=== PATIENT | female | born 1995 | race Caucasian/White ===

== ENCOUNTER 2019-02-12 16:33 | Inpatient (IN) | payer MEDICAID ==
[~2019-02-12] VITALS: Ht 170.2 cm; Wt 120.7 kg
[2019-02-12] VITALS (107 sets, daily range): BP systolic 117–128; BP diastolic 74–81; PULSE 83–94; TEMP 99.1; O2SAT 92–99
[2019-02-12 17:13] LABS: BASO # 0.1 (0.0-0.2); BASO % 0.7 % (0.0-2.0); EOS # 0.1 (0.0-0.7); EOS % 1.3 % (0-4.0); GRAN # 5.5 (1.4-6.5); GRAN % 66.5 % (42.2-75.2); HEMATOCRIT 39.4 % (37.0-47.0); HEMOGLOBIN 13.3 g/dl (12.5-16.0); LYMPH # 2.1 (1.2-3.4); LYMPH % 25.6 % (20.0-51.0); MEAN CELL VOLUME 84 fl (80.0-100.0); MEAN CORPUSCULAR HEMOGLOBIN 29 pg (27.0-31.0); MEAN CORPUSCULAR HGB CONC 34 g/dl (33.0-37.0); MEAN PLATELET VOLUME 9.5 fl (7.4-10.4); MONO # 0.4 (0.1-0.6); MONO % 5.4 % (1.7-9.3); PLATELET COUNT 266 K/mm3 (130-400); RED BLOOD COUNT 4.67 M/mm3 (4.10-5.30); REDCELL DISTRIBUTION WIDTH-CV 13.9 % (11.5-14.5)
[2019-02-12 17:16] LABS: COLLECTION METHOD CLEAN CATCH
[2019-02-12 17:26] LABS: MUCOUS Present /lpf; PH 7 (5-8); SQUAMOUS EPITHELIAL 0-2 /hpf; URINE APPEARANCE Clear; URINE BACTERIA Rare /hpf; URINE BILIRUBIN Negative (NEGATIVE); URINE BLOOD Negative (NEGATIVE); URINE COLOR Yellow; URINE GLUCOSE Negative (NEGATIVE); URINE KETONE Negative (NEGATIVE); URINE LEUKOCYTE ESTERASE Negative (NEGATIVE); URINE NITRATE Negative (NEGATIVE); URINE PROTEIN(semi-quant) 1+ (NEGATIVE); URINE RBC 0-2 /hpf; URINE UROBILINOGEN Negative (NEGATIVE)
[2019-02-12 17:29] LABS: ALANINE AMINOTRANSFERASE 78 U/L (9-52); ALBUMIN 4.9 gm/dL (3.5-5.0); ALKALINE PHOSPHATASE 76 U/L (50-136); ANION GAP 11 mmol/L (7-16); AST,SGOT 112 U/L (15-37); BILIRUBIN,TOTAL 0.4 mg/dL (0.0-1.0); BLOOD UREA NITROGEN 10 mg/dL (7-17); CALCIUM 10.4 mg/dL (8.4-10.2); CARBON DIOXIDE 25 mmol/L (22-30); CHLORIDE 101 mmol/L (98-107); CREATININE, serum 0.54 (0.52-1.25); GLUCOSE 151 mg/dL (74-106); POTASSIUM 4.1 mmol/L (3.4-5.0); SODIUM 137 mmol/L (137-145); TOTAL PROTEIN 8.8 gm/dL (6.4-8.2)
[2019-02-12 17:31] LABS: ACETAMINOPHEN < 10 ug/mL (10-30)
[2019-02-12 17:32] LABS: ALCOHOL(ethanol),MEDICAL < 10 mg/dL
[2019-02-12 17:45] LABS: TRICYCLIC ANTIDEPRESS URINE NEGATIVE
[2019-02-12 18:28] LABS: COLLECTION METHOD CATHETER
[2019-02-12 18:39] LABS: MUCOUS Present /lpf; PH 9 (5-8); SQUAMOUS EPITHELIAL 0-2 /hpf; URINE APPEARANCE Clear; URINE BACTERIA None Seen /hpf; URINE BILIRUBIN Negative (NEGATIVE); URINE BLOOD Negative (NEGATIVE); URINE COLOR Yellow; URINE GLUCOSE Negative (NEGATIVE); URINE KETONE Negative (NEGATIVE); URINE LEUKOCYTE ESTERASE Negative (NEGATIVE); URINE NITRATE Negative (NEGATIVE); URINE PROTEIN(semi-quant) 3+ (NEGATIVE); URINE RBC 0-2 /hpf; URINE UROBILINOGEN Negative (NEGATIVE)
--- NOTE | 2019-02-12 18:45 | NUR ---
RECEIVED TELEPHONE REPORT FROM BAYRON PETERS. ONCOMING SHIFT WILL NOTIFY ED WHEN PT CAN BE TRANSFERRED.
--- NOTE | 2019-02-12 20:05 | NUR ---
Report received from BAYRON Benjamin who received report earlier in shift from ED. Will call ED for update
--- NOTE | 2019-02-12 20:13 | NUR ---
Received update on patient from BAYRON Pike in the ED. Patient has pulled out her NG tube and is no longer receiving the golytely solution. NG may have to be put back in to continue flush. Patient will be brought to the unit shortly.
[2019-02-12 20:16] LABS: CALCIUM 10.1 mg/dL (8.4-10.2); CREATININE, serum 0.52 (0.52-1.25); POTASSIUM 4.3 mmol/L (3.4-5.0)
--- NOTE | 2019-02-12 20:20 | NUR ---
Patient room prepped at this time and all wires zip-tied together, all sharps and loose wires removed, trashbags replaced with paper ones. Suicide gown placed on bed. All signs placed outside of the room.
[2019-02-12 20:21] LABS: LITHIUM 2.4 mmol/L (0.6-1.2)
--- NOTE | 2019-02-12 20:25 | NUR ---
Patient arrives at this time via ED cart. Patient is able to stand and independently move herself to the unit bed. Patient attached to unit monitoring equipment. YARIEL Douglas at the bedside as well as Dr. Barroso to speak with patient. Once providers finished with their exams, assessment was completed by this nurse. Patient is alert and oriented x4. She follows commands and takes direction. Patient answers all questions approriately. Patient's lungs are clear bilaterally in all tillman, no complaints of cough. HR and rhythm are regular with normal S1 and S2 heard. Patient does complain that she feels like her "heart is beating slow". HR has been between 80-100 since being on the unit. Patient states that her normal is between 110-130 at rest. Bowel sounds are active x4. Patient has pale yellow urine in the catheter and is draining well, no kinks or twists in the tubing. Pulses are palpable in all extremities. Patient has self harm scars on all of her extremities with 5 new cuts on her right proximal forearm near the antecubital. They are scabbed and clean. Patient states that she did the recent ones today before she took the lithium. Assisted patient up to the bedside commode. Patient is having clear yellow liquid stools, no particles noted. Patient has some complaints of nausea, but states that it isnt bad at the current time. Explained control buttons on the bed to include the call light. Patient confirmed understanding. Patient's cell phone was sent home with her friend Regine Garcia, who brought her to the ED. Regine took home all patient's belongings to include clothes and cell phone. Regine did bring patient's personal bible in, which patient was allowed to keep. Regine was notified of the restrictions on visitors and went home. Patient resting in bed now with no further needs. Will continue to monitor. Call light on bed rail within reach.
[2019-02-12 22:08] LABS: CALCIUM 9.8 mg/dL (8.4-10.2); CREATININE, serum 0.59 (0.52-1.25); POTASSIUM 4.5 mmol/L (3.4-5.0)
[2019-02-12 22:21] LABS: LITHIUM 3.4 mmol/L (0.6-1.2)
[2019-02-12] MEDS ORDERED: LITHIUM 30300 MG/CAP PO (22:34)
[2019-02-12] MEDS ORDERED: GLUCOPHAGE XR500 M1 PO (22:37)
[2019-02-12] MEDS ORDERED: LATUDA120 MG PO (22:37)
[2019-02-12] MEDS ORDERED: LOPRESSOR100 MG PO (22:38)
[2019-02-12] MEDS ORDERED: MINIPRESS2 MG PO (22:39)
[2019-02-12] MEDS ORDERED: SEROQUEL50 MG PO (22:40)
[2019-02-12] MEDS ORDERED: ZOCOR 20MG20 MG PO (22:40)
[2019-02-12] MEDS ORDERED: JANUVIA 100MG100 MG PO (22:42)
[2019-02-12] MEDS ORDERED: CATAPRES0.3 MG PO (22:42)
--- NOTE | 2019-02-12 22:50 | NUR ---
Patient has complaints of worsening nausea at this time. Phenergan to be given.
[2019-02-13] VITALS (477 sets, daily range): BP systolic 88–156; BP diastolic 57–91; PULSE 78–105; TEMP 98.1–98.9; O2SAT 84–100
--- NOTE | 2019-02-13 | NUR ---
Patient is laying down in bed and states she is ready to try and get some sleep. Vitals obtained and remain WNL. No complaints of pain. Patient continues to have good urine output. Turned out lights for patient. This nurse still has clear line of site to patient at all times. No further needs at this time. Will continue to monitor. Call light within reach.
[2019-02-13 00:25] LABS: CALCIUM 9.7 mg/dL (8.4-10.2); CREATININE, serum 0.6 (0.52-1.25)
[2019-02-13 02:04] LABS: BASO % 0.4 % (0.0-2.0); EOS % 0.3 % (0-4.0); GRAN # 7.7 (1.4-6.5); GRAN % 77.8 % (42.2-75.2); HEMATOCRIT 37.7 % (37.0-47.0); HEMOGLOBIN 12.5 g/dl (12.5-16.0); LYMPH # 1.7 (1.2-3.4); LYMPH % 16.6 % (20.0-51.0); MEAN CELL VOLUME 86 fl (80.0-100.0); MEAN CORPUSCULAR HEMOGLOBIN 29 pg (27.0-31.0); MEAN CORPUSCULAR HGB CONC 33 g/dl (33.0-37.0); MEAN PLATELET VOLUME 9.2 fl (7.4-10.4); MONO # 0.4 (0.1-0.6); MONO % 4.3 % (1.7-9.3); PLATELET COUNT 250 K/mm3 (130-400); RED BLOOD COUNT 4.38 M/mm3 (4.10-5.30)
[2019-02-13 02:31] LABS: CALCIUM 9.6 mg/dL (8.4-10.2); CREATININE, serum 0.54 (0.52-1.25); POTASSIUM 4.1 mmol/L (3.4-5.0)
[2019-02-13 02:45] LABS: LITHIUM 4.4 mmol/L (0.6-1.2)
--- NOTE | 2019-02-13 04:00 | NUR ---
Patient awake at this time as labs are being drawn. Patient is alert and asking questions about her lab work. Discussed results with her. Assessment complete. No changes from previous 2 exams. Patients vitals remain stable. She is having good urine output. Patient has no further needs at this time. Will continue to monitor. Call light within reach.
[2019-02-13 04:32] LABS: CALCIUM 9.6 mg/dL (8.4-10.2); CREATININE, serum 0.65 (0.52-1.25); POTASSIUM 4.5 mmol/L (3.4-5.0)
[2019-02-13 04:33] LABS: LITHIUM 3.7 mmol/L (0.6-1.2)
--- NOTE | 2019-02-13 06:00 | NUR ---
Poison Control calls at this time for an update. Provided most recent lab results and current status. Nothing further at this time. They will call back later today to check in.
[2019-02-13 06:37] LABS: CALCIUM 9.2 mg/dL (8.4-10.2); CREATININE, serum 0.62 (0.52-1.25); POTASSIUM 4.2 mmol/L (3.4-5.0)
[2019-02-13 06:52] LABS: LITHIUM 3.3 mmol/L (0.6-1.2)
--- NOTE | 2019-02-13 07:27 | NUR ---
Report recieved from Josseline VERMA. Patient awakens easily, denies needs when asked.
--- NOTE | 2019-02-13 07:27 | NUR ---
Bedside report given to BAYRON Mckeon. Confirmed that all ligature has been secured and sharps have been removed from the room. Patient resting in bed with no current needs. Transfer of care at this time.
--- NOTE | 2019-02-13 08:00 | NUR ---
Patient's fiance and "mentor" have called to check in with nurse on patient's status. Patient laying in bed with eye closed. Denies needs. Will continue to monitor.
--- NOTE | 2019-02-13 11:56 | NUR ---
Poision Control calls this RN to check in on patient's status. Labs and VS reviewed. No new recommendations at this time
--- NOTE | 2019-02-13 12:11 | NUR ---
Spoke with patient regarding POC. Plan to transfer to medical floor with sitter when able. Patient voices understanding. Very agreeable with RN, denies needs.
--- NOTE | 2019-02-13 12:54 | NUR ---
LAM cedillo attended clincial rounds with the team. Consultations as follows: Nephrology, Psychiatric and social media marketing manager for psych recommenations. LAM cedillo met with the patient to discuss a discharge plan. The patient moved to [place] from [place] two weeks ago with her mentor, Regine Garcia. The patient does not use DME and reports independence with ADLs. The patient does not have a PCP. LAM cedillo provided a list of [facility] providers. LAM cedillo provided [facility] Resource guide which has listing for [address]. LAM cedillo reviewed the guide with patient. The patient receives medications from [facility] and reports her insurance covers the cost. The patient does not have advanced directives in the EMR and was not interested in obtaining a DPOA-HC. The patient plans to return home with Regine providing transportation. The patient is to transfer to the medical floor. support services rep will continue to follow to ensure safe discharge.
--- NOTE | 2019-02-13 13:54 | NUR ---
Report given to Mc VERMA. Transfered to room 315 via wheelchair with RN. Tele monitor on patient. Belongings (Bible and paperwork) sent with patient.
--- NOTE | 2019-02-13 20:00 | NUR ---
Report received from BAYRON Bentley. Patient resting in bed. Assessment complete. Patient is very pleasant and cooperative with cares. Denies having any pain at this time. Lungs CTA. Pulses strong. Patient room has been inspected and changed and all suicide precautions taken. Patient up to restroom independently. Patient states no further needs at this time. Call light within reach.
[2019-02-13 20:15] LABS: CREATININE, serum 0.57 (0.52-1.25); POTASSIUM 3.7 mmol/L (3.4-5.0)
[2019-02-13 20:18] LABS: LITHIUM 1.9 mmol/L (0.6-1.2)
[2019-02-14] VITALS (7 sets, daily range): BP systolic 102–137; BP diastolic 46–64; PULSE 77–99; TEMP 97.8–99.1
--- NOTE | 2019-02-14 01:31 | NUR ---
Patient sleeping in bed. Q15M suicide checks completed. [place] gown taken off due to patient being hot. Removed from room. Patient still denying pain at this time. No further needs at this time. Call light within reach.
--- NOTE | 2019-02-14 06:07 | NUR ---
Patient had uneventful night. Q15M suicide checks throughout night. Denied pain. Resting in bed. Call light on bed within reach.
[2019-02-14 06:11] LABS: BASO % 0.4 % (0.0-2.0); EOS # 0.2 (0.0-0.7); EOS % 2.1 % (0-4.0); GRAN # 4.3 (1.4-6.5); GRAN % 61.5 % (42.2-75.2); HEMOGLOBIN 11.2 g/dl (12.5-16.0); LYMPH # 2.1 (1.2-3.4); LYMPH % 29.3 % (20.0-51.0); MEAN CELL VOLUME 88 fl (80.0-100.0); MEAN CORPUSCULAR HEMOGLOBIN 28 pg (27.0-31.0); MEAN CORPUSCULAR HGB CONC 32 g/dl (33.0-37.0); MEAN PLATELET VOLUME 9.5 fl (7.4-10.4); MONO # 0.4 (0.1-0.6); MONO % 5.8 % (1.7-9.3); PLATELET COUNT 219 K/mm3 (130-400); RED BLOOD COUNT 4.01 M/mm3 (4.10-5.30); REDCELL DISTRIBUTION WIDTH-CV 14.1 % (11.5-14.5)
[2019-02-14 06:17] LABS: CALCIUM 9.2 mg/dL (8.4-10.2); CREATININE, serum 0.56 (0.52-1.25); POTASSIUM 3.7 mmol/L (3.4-5.0)
[2019-02-14 06:24] LABS: HEMATOCRIT 35.1 % (37.0-47.0)
[2019-02-14 06:36] LABS: LITHIUM 1.5 mmol/L (0.6-1.2)
--- NOTE | 2019-02-14 07:08 | NUR ---
Report given to BAYRON Jimenez
--- NOTE | 2019-02-14 08:52 | NUR ---
Patient sleeping this AM. She awakens easily and is cooperative with medications and cares. She denies any pain or discomfort. Not very communicative. With encouragement curtian open in room. Patient have IV fluids infusing to the right hand. Noted there are cut chávez on right forearm that are healing well. Patient ordered breakfast and has no other needs at this time. She has continued to have a 1:1 sitter
--- NOTE | 2019-02-14 10:05 | NUR ---
Current bag of IV fluids has completed. Spoke with YARIEL Camarena regarding IV fluid order. Per her recommendation will hold IV fluids til seen by Dr. Gloria. Questioned if she thought the patient was medically stable and could be screened by [facility]. At this time her [place] level is not normalized and we would need to wait until this took place
--- NOTE | 2019-02-14 11:39 | NUR ---
Per Dr. Gloria, patient is medically cleared and ready to be screened. Kiara [facility] [place] has been called and will be here soon to screen the patient for discharge planning. IV fluids and tele has been discontinued.
--- NOTE | 2019-02-14 11:54 | NUR ---
Patient doing well denies any pain discomfort. Lunch meal ordered. patietn states she is having a small amount of stomach cramping and small loose stool noted. She is independent in room. No other needs
--- NOTE | 2019-02-14 12:39 | NUR ---
Kiara from [facility] here to evaluate patient. Patient can be discharged to home with safety plan. Call placed to Dr. Gloria for discharge orders to home. Patient given phone to call friend for a ride home. Patient in good spirits.
--- NOTE | 2019-02-14 13:43 | NUR ---
Discharge instructions reviewed with patient and her friend. Encouragement given to keep follow up appointments. Patient states she has no further lithium at home and will start her other medications as ordered. No other needs at this time. Patient given and reviewed the safety plan. INT removed. Escorted out by FATMATA
== END 2019-02-14 13:45 | disposition home or self-care (01) | DRG 918 ==
LOC: COL.ER 16:33 → MEDICAL 18:06 → ICU 18:06 → MEDICAL 02-13 15:29
PROVIDERS: Emergency Medicine; Nurse Practitioner Family; Physician Assistant; ADMIT Student in an Organized Health Care Education/Training Program
DX: T56.892A Toxic effect of other metals, intentional self-harm, initial encounter (principal); F33.9 Major depressive disorder, recurrent, unspecified; R74.8 Abnormal levels of other serum enzymes; F60.3 Borderline personality disorder; F43.10 Post-traumatic stress disorder, unspecified; F41.8 Other specified anxiety disorders; E28.2 Polycystic ovarian syndrome; E11.9 Type 2 diabetes mellitus without complications; R00.0 Tachycardia, unspecified; I49.9 Cardiac arrhythmia, unspecified; E78.5 Hyperlipidemia, unspecified; Z79.84 Long term (current) use of oral hypoglycemic drugs
CPT/HCPCS: 99222-AI; 99239; J1650; J2405; J2550; J3480; J7030

== ENCOUNTER 2022-08-18 08:27 | Emergency (ER) | payer MEDICAID ==
[~2022-08-18] VITALS: Ht 170.2 cm; Wt 105.0 kg
[~2022-08-18 08:27] MED LIST: CATAPRES0.3 MG PO; GLUCOPHAGE XR500 M1 PO; JANUVIA 100MG100 MG PO; LATUDA120 MG PO; LITHIUM 30300 MG/CAP PO; LOPRESSOR100 MG PO; MINIPRESS2 MG PO; SEROQUEL50 MG PO; ZOCOR 20MG20 MG PO
[2022-08-18 08:31] VITALS: TEMP 98.2
[2022-08-18 09:04] LABS: BASO # 0.1 K/mm3 (0.0-0.2); BASO % 0.6 % (0.0-2.0); EOS # 0.1 K/mm3 (0.0-0.7); EOS % 1.1 % (0.0-4.0); GRAN # 6.4 K/mm3 (1.4-6.5); GRAN % 75.4 % (42.2-75.2); HEMOGLOBIN 12.7 g/dl (12.5-16.0); LYMPH # 1.5 K/mm3 (1.2-3.4); MEAN CELL VOLUME 87 fl (80.0-100.0); MEAN CORPUSCULAR HEMOGLOBIN 30 pg (27-31); MEAN CORPUSCULAR HGB CONC 34 g/dl (33.0-37.0); MEAN PLATELET VOLUME 9.2 fl (7.4-10.4); MONO # 0.4 K/mm3 (0.1-0.6); MONO % 4.3 % (1.7-9.3); PLATELET COUNT 256 K/mm3 (130-400); RED BLOOD COUNT 4.27 M/mm3 (4.10-5.30); REDCELL DISTRIBUTION WIDTH-CV 12.8 % (11.5-14.5)
[2022-08-18 09:20] LABS: ALBUMIN 4.3 gm/dL (3.5-5.0); BILIRUBIN,TOTAL 0.5 mg/dL (0.2-1.2); CALCIUM 9.6 mg/dL (8.4-10.2); CREATININE, serum 0.71 mg/dL (0.57-1.11); POTASSIUM 3.7 mmol/L (3.5-4.5); TOTAL PROTEIN 7.7 gm/dL (6.2-8.1)
[2022-08-18 10:12] VITALS: BP 112/73
[2022-08-18 12:10] VITALS: PULSE 70
[2022-08-18 12:36] LABS: COLLECTION METHOD IN
[2022-08-18 12:46] LABS: MUCOUS Present (NOT PRESENT); SQUAMOUS EPITHELIAL 0-2 /hpf (0-10); URINE BACTERIA Rare /hpf (NONE SEEN); URINE WBC 0-2 /hpf (0-2)
[2022-08-18 13:32] LABS: PH 5.5 (5.0-8.5); URINE APPEARANCE Clear (CLEAR/HAZY); URINE BLOOD 2+ (NEGATIVE); URINE COLOR Yellow (YELLOW); URINE GLUCOSE Negative (NEGATIVE); URINE KETONE Negative (NEGATIVE); URINE NITRATE Negative (NEGATIVE); URINE PROTEIN(semi-quant) Negative (NEGATIVE); URINE UROBILINOGEN 0.2 E.U/dL (0.2-1.0)
== END 2022-08-18 12:14 | disposition home or self-care (01) ==
LOC: COL.ER 08:27
PROVIDERS: Emergency Medicine
DX: O20.0 Threatened abortion (principal); Z3A.01 Less than 8 weeks gestation of pregnancy; Z28.310 Unvaccinated for COVID-19
CPT/HCPCS: J1885; J2791; J3010; J7120

== ENCOUNTER → 2023-06-12 | Outpatient (CLI) | payer MEDICAID ==
[~2023-06-12] MED LIST changes: +CRUTCHES MC
== END ==
LOC: DIA.ED 13:27
DX: O24.419 Gestational diabetes mellitus in pregnancy, unspecified control (principal)
CPT/HCPCS: G0108

== ENCOUNTER → 2023-06-22 | Outpatient (CLI) | payer MEDICAID | LOC: DIA.ED 08:26 | DX: O24.419 Gestational diabetes mellitus in pregnancy, unspecified control (principal); E78.5 Hyperlipidemia, unspecified | CPT/HCPCS: G0108 ==

== ENCOUNTER 2023-07-08 15:17 | Emergency (ER) | payer MEDICAID ==
[~2023-07-08] VITALS: Ht 172.7 cm; Wt 117.9 kg
[2023-07-08 15:26] VITALS: TEMP 98.4
[2023-07-08] MEDS ORDERED: NS 1,000 ML IV ONE (15:45)
[2023-07-08 16:11] LABS: HEMOGLOBIN 10.6 g/dl (12.5-16.0); MEAN CELL VOLUME 87 fl (80.0-100.0); MEAN CORPUSCULAR HEMOGLOBIN 29 pg (27-31); MEAN CORPUSCULAR HGB CONC 33 g/dl (33.0-37.0); MEAN PLATELET VOLUME 9.1 fl (7.4-10.4); PLATELET COUNT 189 K/mm3 (130-400); RED BLOOD COUNT 3.64 M/mm3 (4.10-5.30); REDCELL DISTRIBUTION WIDTH-CV 14.9 % (11.5-14.5)
[2023-07-08 16:14] LABS: HEMATOCRIT 31.8 % (37.0-47.0)
[2023-07-08 16:30] LABS: CALCIUM 9.8 mg/dL (8.4-10.2); CREATININE, serum 0.7 mg/dL (0.57-1.11); POTASSIUM 3.3 mmol/L (3.5-4.5)
[2023-07-08 17:28] LABS: COLLECTION METHOD IN
[2023-07-08 17:32] LABS: PH 6.5 (5.0-8.5); URINE APPEARANCE CLOUDY (CLEAR/HAZY); URINE BLOOD NEGATIVE (NEGATIVE); URINE COLOR YELLOW (YELLOW); URINE GLUCOSE 1+ (NEGATIVE); URINE KETONE NEGATIVE (NEGATIVE); URINE NITRATE NEGATIVE (NEGATIVE); URINE PROTEIN(semi-quant) NEGATIVE (NEGATIVE); URINE UROBILINOGEN 0.2 E.U/dL (0.2-1.0)
[2023-07-08 18:07] VITALS: BP 102/58; PULSE 98
== END 2023-07-08 18:07 | disposition home or self-care (01) ==
LOC: COL.ER 15:17
PROVIDERS: Emergency Medicine
DX: O99.283 Endocrine, nutritional and metabolic diseases complicating pregnancy, third trimester (principal); E86.0 Dehydration; E87.6 Hypokalemia; Z3A.32 32 weeks gestation of pregnancy
CPT/HCPCS: J7030

== ENCOUNTER → 2023-07-11 | Outpatient (CLI) | payer MEDICAID | LOC: DIA.ED | DX: O24.419 Gestational diabetes mellitus in pregnancy, unspecified control (principal) ==

== ENCOUNTER 2023-08-17 10:40 | Inpatient (IN) | payer MEDICAID ==
[~2023-08-17] VITALS: Ht 172.7 cm; Wt 130.0 kg
[~2023-08-17 10:40] MED LIST changes: +EUTHYROX75 MCG PO; +PRENATAL TABLET PO; +SLOW FE137 M1 PO; +VITAMIN D362.5 MC1 PO
[2023-08-21] VITALS (53 sets, daily range): BP systolic 106–148; BP diastolic 55–97; PULSE 80–126; TEMP 97.6–99.2
[2023-08-21] MEDS ORDERED: LR & Oxytocin 500 ML IV SCH (06:45)
[2023-08-21] MEDS ORDERED: LR 1,000 ML IV SCH (06:45)
--- NOTE | 2023-08-21 06:50 | NUR ---
PATIENT AMBULATED ON TO UNIT AND TO ROOM. PATIENT DENIES ANY LEAKING OF FLUID OR BLEEDING. PATIENT REPORTS NORMAL MOVEMENT. PATIENT REPORTS IRREGULAR CONTRACTIONS. EFM AND TOCO INITIATED. SP02 INITIATED.
--- NOTE | 2023-08-21 07:30 | NUR ---
PATIENT REPORTS SUICIDAL THOUGHTS THIS BUT HAS NO PLANS TO ACT ON THEM. PATIENT REPORTS SHE IS RECIEVING SPIRTUAL HELP. PATIENT FEELS HER IDEATIONS MAY HAVE BEEN RELATED TO HER LOW THYROID LEVELS. PATIENT SUPPORT SYSTEM IN PLACE. SOCIAL WORK WILL BE NOTIFIED.
[2023-08-21] MEDS ORDERED: LANTUS SOLOS100 U/ML SQ (08:00)
[2023-08-21] MEDS ORDERED: HUMALOG PEN100 U/ML (08:02)
--- NOTE | 2023-08-21 08:10 | NUR ---
0810 AT BEDSIDE. FHR TRACING REVIEWED AND PLAN OF CARE UPDATED. SVE:/-2. AROM @ 0815. FSE PLACED BY @ 08.
[2023-08-21 08:11] LABS: BASO % 0.3 % (0.0-2.0); EOS # 0.1 K/mm3 (0.0-0.7); HEMOGLOBIN 11.6 g/dl (12.5-16.0); LYMPH # 1.3 K/mm3 (1.2-3.4); LYMPH % 16.8 % (20.0-51.0); MEAN CELL VOLUME 86 fl (80.0-100.0); MEAN CORPUSCULAR HEMOGLOBIN 29 pg (27-31); MEAN CORPUSCULAR HGB CONC 34 g/dl (33.0-37.0); MEAN PLATELET VOLUME 9.6 fl (7.4-10.4); MONO # 0.4 K/mm3 (0.1-0.6); MONO % 4.9 % (1.7-9.3); PLATELET COUNT 194 K/mm3 (130-400); RED BLOOD COUNT 3.97 M/mm3 (4.10-5.30); REDCELL DISTRIBUTION WIDTH-CV 15.2 % (11.5-14.5)
[2023-08-21 08:21] LABS: HEMATOCRIT 34.3 % (37.0-47.0)
--- NOTE | 2023-08-21 10:30 | NUR ---
PATIENT UP TO BATHROOM AND OFF EFM
--- NOTE | 2023-08-21 10:45 | NUR ---
PATIENT SETUP ON WIRELESS MONITOR FOR AMBULATION ON UNIT.
--- NOTE | 2023-08-21 11:00 | NUR ---
AT BEDSIDE. SVE: -/-2. FHR TRACING REVIWED AND PLAN OF CARE UPDATED.
[2023-08-21] MEDS ORDERED: ROPivacaine PF 0.2% 200 ML IV ONE (13:44)
--- NOTE | 2023-08-21 13:58 | NUR ---
1347 REJI OBRIEN AT THE BEDSIDE. PROCEDURE EXPLAINED AND CONSENT OBTAINED. PATIENT SETUP FOR EPIDURAL. 1358 TEST DOSE. SEE ANESTHESIA RECORD FOR DETAILS. SP02 MONITOR INITIATED. 1405 PATIENT ASSSITED BACK TO LEFT LATERAL POSITION. FSE AND TOCO AJUSTED.
[2023-08-21] MEDS ORDERED: Lidocaine PF 2% (20 MG/ML) 5 ML VIAL ONE (14:08)
[2023-08-21] MEDS ORDERED: diphenhydrAMINE 25 MG CAP PO PRN (14:30)
[2023-08-21] MEDS ORDERED: Naloxone 0.4 MG/ML VIAL IV PRN ×2 (14:30→22:30)
[2023-08-21] MEDS ORDERED: ePHEDrine 50 MG/10 ML VIAL IV PRN (14:30)
[2023-08-21] MEDS ORDERED: diphenhydrAMINE 50 MG/ML 1 ML VIAL IV PRN (14:30)
[2023-08-21] MEDS ORDERED: Ondansetron 4 MG/2 ML VIAL IV PRN ×2 (14:30→22:30)
--- NOTE | 2023-08-21 14:30 | NUR ---
CONTRACTIONS UNABLE TO BE TRACED D/T MATERNAL POSITION. TOCO ADJUSTED.
--- NOTE | 2023-08-21 14:45 | NUR ---
THIS RN AT [facility]. PATIENT IN THE LEFT LATERAL POSITION, RECURRENT LATE DECELERATIONS.PATIENT REPOSITIONED TO RIGHT LATERAL. WITH POSTION CHANGE A 2 MIN FHR DECELERATION TO THE 90S. FHR RECOVERY BACK TO BASELINE WITH MATERNAL REPOSITION BACK TO LEFT LATERAL, IV BOLUS INITIATED. MD NOTIFED.
--- NOTE | 2023-08-21 17:03 | NUR ---
AT BEDSIDE. FHR TRACING REVIEWED. PLAN OF CARE UPDATED. SVE:/-2. BLOODY SHOW PRESENT. REQUESTS THAT THIS RN PASS ON TO CLINICAL OFFICE TECHNICIAN TO CHECK HER AT 1900 AND CALL HER.
--- NOTE | 2023-08-21 17:25 | NUR ---
PATIENT REPORTS FEELING LIGHTHEADED. THIS RN AT BEDSIDE. MATERNAL BLOOD PRESSURE 106/55. EPHEDRINE 10 MG GIVEN @ 1727 WITH IMPROVMENT IN MATERNAL BLOOD PRESSURE TO 120/63. MATERNAL BLOOD PRESSURE DECREASE TO 109/58 AT 1740. ANOTHER DOSE OF EPHEDRINE 10MG GIVEN @ 1741. MATERNAL BLOOD PRESSURE IMPROVED TO 128/68 AND REMAINED STABLE AT 168/81 AND 147/66.
--- NOTE | 2023-08-21 19:00 | NUR ---
Dr Singh calls in report given. SVE . Cervix 'swollen' on the L. Category 1 FHT's, Pitocin gtt @ 20.
--- NOTE | 2023-08-21 20:10 | NUR ---
Dr Singh into room. SVE as noted. "no change from previous exam" IUPC placed. Dr Singh discusses POC with pt r/t evaluating strength, frequency, and effectiveness of contrqactions.
[2023-08-21] MEDS ORDERED: traZODone 50 MG TAB PO PRN (21:00)
--- NOTE | 2023-08-21 21:40 | NUR ---
Dr Singh into room, SVE with no changes noted. Dr Singh discusses POC r/t possible C/S. Will reasses in 1/2hr.
--- NOTE | 2023-08-21 22:20 | NUR ---
Dr Singh into room, SVE "unchanged" . Dr Singh discusses need to proceed with C/S. Questions invited and answered. 2224 Katie laughlin. . Anesthesia into room. 2239 To C/S room via bed.
[2023-08-21] MEDS ORDERED: LR 1,000 ML IV PRN (22:30)
[2023-08-21] MEDS ORDERED: Morphine 4 MG/ML VIAL IV PRN (22:30)
[2023-08-21] MEDS ORDERED: oxyCODONE 5 MG TAB PO PRN (22:30)
[2023-08-21] MEDS ORDERED: Acetaminophen 500 MG TAB PO PRN (22:30)
[2023-08-21] MEDS ORDERED: Loratadine 10 MG TAB PO PRN (22:30)
[2023-08-21] MEDS ORDERED: Tranexamic Acid 1,000 MG in NS 100 ML IV ONE (22:30)
[2023-08-21] MEDS ORDERED: Magnes Hydrox (MOM) 80 MG/ML 30 ML CUP PO PRN (22:30)
[2023-08-21] MEDS ORDERED: Measles/Mumps/Rubella Virus Vaccine Live w Diluent 0.5 ML VIAL SQ SCH (22:30)
[2023-08-21] MEDS ORDERED: Azithromycin 500 MG in NS 250 ML IV ONE (22:30)
[2023-08-21] MEDS ORDERED: Chloroprocaine PF 3% (30 MG/ML) 20 ML VIAL ONE (22:34)
[2023-08-21] MEDS ORDERED: Ketorolac 30 MG/ML VIAL ONE (22:38)
[2023-08-21] MEDS ORDERED: Oxytocin 10 UNITS/ML VIAL ONE (22:38)
[2023-08-21] MEDS ORDERED: Ondansetron 4 MG/2 ML VIAL ONE (22:38)
[2023-08-21] MEDS ORDERED: NS 20 ML IV ONE (22:38)
[2023-08-21] MEDS ORDERED: fentaNYL 50 MCG/ML 2 ML VIAL ONE ×2 (22:57→23:07)
[2023-08-21] MEDS ORDERED: dexAMETHasone 10 MG/ML VIAL ONE (23:21)
[2023-08-21] MEDS ORDERED: EPINEPHrine 1 MG/1 ML Ampule ONE (23:28)
[2023-08-22] VITALS (15 sets, daily range): BP systolic 111–150; BP diastolic 70–94; PULSE 80–126; TEMP 98–98.7
[2023-08-22] MEDS ORDERED: Ibuprofen 800 MG TAB PO SCH (04:25)
[2023-08-22] MEDS ORDERED: Sennosides/Docusate 8.6-50 MG TAB PO SCH (08:00)
--- NOTE | 2023-08-22 09:22 | NUR ---
Initial visit; Parents thanked Block [employer] Case [employer] for offering congratulations and God's blessings for the of their son. Block And Case Maker thanked family for choosing [place].
[2023-08-22] MEDS ORDERED: Glucagon 1 MG VIAL IM PRN (11:30)
[2023-08-22] MEDS ORDERED: Dextrose 50% Water 25 GM/50 ML SYRINGE IV PRN (11:30)
[2023-08-22] MEDS ORDERED: Dextrose (Glucose) 15 GM (4 x 3.75 GM) Chewable TABLET PACK PO PRN (11:30)
[2023-08-22] MEDS ORDERED: Insulin Lispro (HumaLOG) SQ SCH ×2 (12:00→17:00)
[2023-08-22] MEDS ORDERED: Insulin Glargine-ygfn (Lantus) SQ SCH (21:00)
[2023-08-23 06:45] VITALS: BP 122/89; PULSE 96; TEMP 97.7
--- NOTE | 2023-08-23 06:45 | NUR ---
Pt called out asking if baby was ready to eat. This RN went to pt room. Pt was sitting on the toilet tears streaming down both cheeks. When asked why she was crying pt stated that there was something wrong with her baby and that is why it had not come back to the room. Pt was reassured that her baby was doing fine and asleep in the nursery. Pt was reminded that she sent baby to the nursery so she could sleep last night. Pt was holding her abdomin. Pt was asked if she was in pain. Pt stated that her inscision had ripped open and was bleeding. This RN was assessed the bandage closer. Bandage was clean and dry with no drainage. Pt was reassured that she was not bleeding at her inscision site. Pt did calm down some. This RN told pt she would go get baby from nursery and bring him in while pt got finnished up in the bathroom and got back to bed.
--- NOTE | 2023-08-23 08:15 | NUR ---
This RN went to PT room to take a blood sugar. Pt was in bed holding baby up to her face, tears streaming down both cheeks agian. When asked what pt was feeing she stated that she felt so incredibley guilty for sending him to the nursery lst night. She didn't ever want to let him go. She had abandoned him last night. This RN reassured the PT that sending baby to the nursery so she could get some sleep was not abandoning him. Pt also stated that she was having seperation anxiety. This RN asked how the pt would feel about taking an anxiety medication if I talked to the doctor about it. Pt was unsure at first and asked if she could take while . Pt was reassured that would not be affected.
[2023-08-23 10:14] VITALS: BP 113/69; PULSE 101; TEMP 97.7
--- NOTE | 2023-08-23 17:09 | NUR ---
tail worker was consulted due to patient having previous suicidal ideations during . SAEID met with patient's nurse whom reports patient's emotions have been up and down to the point they are submitting for a psych consult. SW met with patient, patient's and patient's mother to complete assessment. Patient's current PCP is Flor Herrera at [facility], pharmacy is [facility]. Patient has a lot of family support available to her. Patient has crib, bassinet, car seat, cloth diapers, formula, breast pump, bottles, clothing and reports his nursery is set up. Patient is currently employed and plans to return to work when able. Patient's will be a stay at home dad so baby will have support at all times. Patient has [employer] for insurance and SW explained the process on how to add baby to the insurance. Patient is able to transport herself and baby to and from appointments for follow up. Patient would be interested in [facility] services. Patient has no other children. SW discussed patient's previous thoughts of harming herself and she stated it happened during her because her thyroid levels dropped. Patient stated once stabilized she had no further thoughts of harming herself. Patient denied any current thoughts or plan of harming herself. SW provided information on mental health resources in the community including at her [facility]. Patient reports she is not interested in mental health therapy at this time because she was in therapy for years and it did not work for her. Patient reports she has a mentor through her confucianist that she turns to for guidance in difficult times. SW discussed depression and that if she were to want to seek mental health services her [facility] has a counselor to assist if needed. Patient and understood. SW also provided the [facility] Resource guide along with another community based resource. Patient is open to anxiety medication and understands she can breast feed while on this medication. SAEID updated nurse on this information. Patient will have a psych consult completed. SW completed a CPS report due to previous suicidal thoughts and patient may benefit from additional resources DCF can provide. Intake ID: [id number]
[2023-08-23 17:30] VITALS: BP 120/76; PULSE 85; TEMP 98.3
[2023-08-23 19:55] VITALS: BP 136/76; PULSE 92; TEMP 98.1
[2023-08-23] MEDS ORDERED: PERCOCET 325 MG1 TA2 PO (20:46)
[2023-08-23] MEDS ORDERED: MOTRIN 800800 MG/TAB PO (20:46)
[2023-08-24 09:00] VITALS: BP 140/90; PULSE 91; TEMP 97.9
--- NOTE | 2023-08-24 12:00 | NUR ---
DC INSTRUCTIONS GIVEN, MMR VACCINE GIVEN, PT AGREES.
== END 2023-08-24 12:00 | disposition home or self-care (01) | DRG 788 ==
LOC: OB 10:40 → LDR 08-21 06:32 → OB 08-21 06:32
PROVIDERS: ADMIT Obstetrics & Gynecology
PROC: 10D00Z1 Extraction of Products of Conception, Low, Open Approach (ICD-10-PCS; principal; 2023-08-21)
PROC: 3E033VJ Introduction of Other Hormone into Peripheral Vein, Percutaneous Approach (ICD-10-PCS; 2023-08-21)
PROC: 10907ZC Drainage of Amniotic Fluid, Therapeutic from Products of Conception, Via Natural or Artificial Opening (ICD-10-PCS; 2023-08-21)
DX: O24.425 Gestational diabetes mellitus in childbirth, controlled by oral hypoglycemic drugs (principal); Z3A.38 38 weeks gestation of pregnancy; Z37.0 Single live birth; J45.909 Unspecified asthma, uncomplicated; O99.52 Diseases of the respiratory system complicating childbirth; O99.284 Endocrine, nutritional and metabolic diseases complicating childbirth; E03.9 Hypothyroidism, unspecified; F31.9 Bipolar disorder, unspecified; F43.10 Post-traumatic stress disorder, unspecified; O36.63X0 Maternal care for excessive fetal growth, third trimester, not applicable or unspecified; O99.344 Other mental disorders complicating childbirth; O76 Abnormality in fetal heart rate and rhythm complicating labor and delivery; E78.5 Hyperlipidemia, unspecified; O26.893 Other specified pregnancy related conditions, third trimester; O69.81X0 Labor and delivery complicated by cord around neck, without compression, not applicable or unspecified; O99.214 Obesity complicating childbirth; Z79.890 Hormone replacement therapy; Z67.41 Type O blood, Rh negative
CPT/HCPCS: J0171; J0665; J0690; J1100; J1815; J1885; J2270; J2401; J2405; J2590; J2704; J2795; J3010; J7120

== ENCOUNTER 2023-09-07 10:52 | Emergency (ER) | payer MEDICAID ==
[~2023-09-07] VITALS: Ht 172.7 cm; Wt 111.4 kg
[~2023-09-07 10:52] MED LIST changes: +HUMALOG PEN100 U/ML; +LANTUS SOLOS100 U/ML SQ; +MOTRIN 800800 MG/TAB PO; +PERCOCET 325 MG1 TA2 PO
[2023-09-07 10:56] VITALS: TEMP 98.7
[2023-09-07 11:47] LABS: BASO # 0.1 K/mm3 (0.0-0.2); BASO % 0.8 % (0.0-2.0); EOS # 0.1 K/mm3 (0.0-0.7); EOS % 1.3 % (0.0-4.0); GRAN # 4.5 K/mm3 (1.4-6.5); GRAN % 72.5 % (42.2-75.2); HEMATOCRIT 34.8 % (37.0-47.0); HEMOGLOBIN 11.2 g/dl (12.5-16.0); LYMPH # 1.2 K/mm3 (1.2-3.4); LYMPH % 19.4 % (20.0-51.0); MEAN CELL VOLUME 88 fl (80.0-100.0); MEAN CORPUSCULAR HEMOGLOBIN 28 pg (27-31); MEAN CORPUSCULAR HGB CONC 32 g/dl (33.0-37.0); MONO # 0.3 K/mm3 (0.1-0.6); MONO % 5.5 % (1.7-9.3); PLATELET COUNT 230 K/mm3 (130-400); RED BLOOD COUNT 3.96 M/mm3 (4.10-5.30); REDCELL DISTRIBUTION WIDTH-CV 13.7 % (11.5-14.5)
[2023-09-07 12:00] LABS: ALBUMIN 3.9 g/dL (3.5-5.0); BILIRUBIN,TOTAL 0.5 mg/dL (0.2-1.2); CALCIUM 9.7 mg/dL (8.4-10.2); CREATININE, serum 0.79 mg/dL (0.57-1.11); POTASSIUM 3.9 mEq/L (3.5-4.5); TOTAL PROTEIN 7.6 g/dl (6.2-8.1)
[2023-09-07] MEDS ORDERED: Iohexol 300 - 100 ML VIAL IV ONE (12:01)
[2023-09-07] MEDS ORDERED: NS 100 ML IV SCH (12:02)
[2023-09-07] MEDS ORDERED: Ketorolac 30 MG/ML VIAL IV ONE (14:00)
[2023-09-07] MEDS ORDERED: NORCO 325 MG-51 TAB PO (14:00)
[2023-09-07 14:24] VITALS: BP 117/74; PULSE 86
== END 2023-09-07 14:26 | disposition home or self-care (01) ==
LOC: COL.ER 10:52
PROVIDERS: Physician Assistant
DX: O99.73 Diseases of the skin and subcutaneous tissue complicating the puerperium (principal); L02.215 Cutaneous abscess of perineum; O99.215 Obesity complicating the puerperium; E66.9 Obesity, unspecified; Z68.37 Body mass index [BMI] 37.0-37.9, adult
CPT/HCPCS: J1885; Q9967